=== PATIENT | male | born 1975 | race Caucasian/White ===

== ENCOUNTER 2018-12-26 20:16 | Inpatient (IN) | payer MEDICAID ==
[~2018-12-26] VITALS: Ht 175.3 cm; Wt 78.5 kg
[2018-12-26 20:28] VITALS: Ht 175.3 cm; Wt 78.5 kg
--- NOTE | 2018-12-26 20:33 | NUR ---
PER MEDICS, PT CALLED FOR AN AMBULANCE FROM [facility] WITH C/O ABD PAIN. PT STATES TO HAVING "ABDOMINAL PROBLEMS" X2 YRS, WAS SUPPOSED TO GET HIS GALLBLADDER OUT BUT DID NOT. PT STATES THAT HE OFTEN SUFFERS WITH ABD PAIN BUT IN THE LAST FEW DAYS HAS BECOME INCREASINGLY WORSE. PT STATES TO 8/10 PAIN AT THIS TIME. PT STATES TO ABD DISTENTION, NAUSEA WITH NO VOMITING. PER MEDICS, EKG NSR, VSS. PT AOX4, RESP EVEN AND UNLABORED, NO ACUTE DISTRESS NOTED AT THIS TIME.
[2018-12-26 21:20] LABS: BASOPHIL % 0.8 % (0-2)
[2018-12-26 21:24] LABS: CALCIUM 8.4 mg/dL (8.5-10.1); CARBON DIOXIDE 23.2 mmol/L (21-32); CHLORIDE SERUM 101 mmol/L (98-107); CREATININE SERUM 0.7 mg/dL (0.7-1.3); GFR1 > 60 mL/min; GLUCOSE SERUM 88 mg/dL (74-106); POTASSIUM SERUM 3.4 mmol/L (3.5-5.1); SODIUM SERUM 133 mmol/L (136-145)
[2018-12-26 21:26] LABS: PLATELET COUNT 86 x10^3mcL (130-400); RED CELL DISTRIBUTION WIDTH 19.5 % (11.5-14.5)
[2018-12-26 21:29] LABS: ALKALINE PHOSPHATASE 205 U/L (46-116); ALT/SGPT 33 U/L (16-63); AST/SGOT 76 U/L (15-37); BILIRUBIN TOTAL 2.2 mg/dL (0.20-1.00); LIPASE 354 IU/L (73-393); TOTAL PROTEIN, SERUM 7.4 g/dL (6.4-8.2)
[2018-12-26 21:32] LABS: ALBUMIN 2.6 g/dL (3.4-5.0)
--- NOTE | 2018-12-26 21:35 | NUR ---
PT MEDICATED PER EMAR ORDER. PT VERBALIZED " I AM HEARING A WOMANS VOICE, AND OTHER VOICES". PT DENIES ANY SI OR WANTING TO HARM OTHERS. PT STATES THAT THE VOICES ARE NOT TELLING HIM TO HARM HIMSELF OR OTHERS. PT STATES HE TAKES HALDOL DAILY AND HAS " BUGS" ALL OVER HIM. WILL NOTIFY
--- NOTE | 2018-12-26 22:18 | NUR ---
PT ASLEEP IN ED GURNEY, PT IS EASILY AROUSABLE. PT RESPS ARE E/U. NO S/S OF DISTRESS
[2018-12-26 23:17] LABS: AMPHETAMINE QUAL UR NONE DETECTED (See below)
--- NOTE | 2018-12-26 23:33 | NUR ---
PT WHEELED TO CT VIA JIM[facility] BY [employer].
[2018-12-26] MEDS ORDERED: ZOLOFT20 MG/ML (23:43)
[2018-12-26] MEDS ORDERED: SEROQUEL25 MG (23:43)
[2018-12-26] MEDS ORDERED: LACTULOSE10 GM/152 (23:43)
[2018-12-26] MEDS ORDERED: OMEPRAZOLE10 M1 (23:43)
[2018-12-26] MEDS ORDERED: HYDROXYZIN10 MG/5 M2 (23:44)
[2018-12-26] MEDS ORDERED: ATIVAN0.5 M1 (23:44)
[2018-12-26] MEDS ORDERED: NOR10T (23:44)
[2018-12-26] MEDS ORDERED: HALDOL5 MG/ML (23:45)
[2018-12-26] MEDS ORDERED: DILANTIN100 MG (23:46)
--- NOTE | 2018-12-27 00:22 | NUR ---
PT DENIES HAVING ANY UPDATED IMMUNIZATIONS AT THIS TIME. PT IS LAYING IN [facility]. PT IS A/O X3. PT RESPS ARE E/U. PT STATES THAT HE NEEDS A TB TEST FOR THE GROUP HOME HE IS CURRENTLY RESIDING AT. WILL NOTIFY
--- NOTE | 2018-12-27 01:18 | NUR ---
PT IS ABLE TO AMBULATE WITH STEADY GAIT TO RESTROOM.
--- NOTE | 2018-12-27 02:22 | NUR ---
PT ASLEEP BUT EASILY AROUSABLE. RESPS ARE E/U. NO DISTRESS NOTED
[2018-12-27 03:46] LABS: PHOSPHOROUS 3.2 mg/dL (2.5-4.9)
[2018-12-27 03:47] LABS: CHOLESTEROL/HDL RATIO 4.5
[2018-12-27 04:09] LABS: MAGNESIUM 1.4 mg/dL (1.8-2.4)
[2018-12-27 04:27] LABS: FREE T4 1.01 ng/dL (0.76-1.46); FREE THYROXINE INDEX 2.3 ug/dL (1.4-4.5); T4(THYROXINE) 5.8 ug/dL (4.7-13.3)
--- NOTE | 2018-12-27 04:47 | NUR ---
PT MEDICATED PER EMAR ORDERS. PT IS RESTING IN ED GURNEY. PT DENIES ANY PAIN. COMFORT MEASURES IN PLACE. NO ACD NOTED
[2018-12-27 05:36] LABS: BASOPHIL % 0.7 % (0-2)
[2018-12-27 05:38] LABS: PLATELET COUNT 58 x10^3mcL (130-400); RED CELL DISTRIBUTION WIDTH 19.5 % (11.5-14.5)
[2018-12-27 05:43] LABS: ALKALINE PHOSPHATASE 165 U/L (46-116); ALT/SGPT 29 U/L (16-63); AST/SGOT 65 U/L (15-37); BILIRUBIN TOTAL 1.55 mg/dL (0.20-1.00); CALCIUM 7.5 mg/dL (8.5-10.1); CHLORIDE SERUM 109 mmol/L (98-107); CREATININE SERUM 0.7 mg/dL (0.7-1.3); GFR1 > 60 mL/min; GLUCOSE SERUM 95 mg/dL (74-106); POTASSIUM SERUM 3.6 mmol/L (3.5-5.1); SODIUM SERUM 142 mmol/L (136-145)
--- NOTE | 2018-12-27 05:52 | NUR ---
PAGED MD CHAND TO NOTIFY ABOUT CRITICAL RESULTS
[2018-12-27 05:53] LABS: ALBUMIN 2.1 g/dL (3.4-5.0); TOTAL PROTEIN, SERUM 6.1 g/dL (6.4-8.2)
--- NOTE | 2018-12-27 06:23 | NUR ---
PT ASLEEP IN ED GURNEY BUT EASILY AROUSABLE. PT HAS CALL LIGHT WITHIN REACH. PT MEDICATED PER EMAR ORDERS. NO ACUTE DISTRESS NOTED
[2018-12-27 06:38] LABS: PHOSPHOROUS 3.6 mg/dL (2.5-4.9)
--- NOTE | 2018-12-27 07:07 | NUR ---
GAVE PT REPORT TO BEN NORIEGA TO ASSUME PRIMARY CARE OF PT
--- NOTE | 2018-12-27 07:10 | NUR ---
RECEIVED REPORT FROM LEANN FUENTES
--- NOTE | 2018-12-27 07:52 | NUR ---
REPORT GIVEN TO LEANN BERRY
[2018-12-27 08:12] LABS: T3 TOTAL 0.84 ng/mL
--- NOTE | 2018-12-27 09:33 | NUR ---
MAGEN FROM ULTRASOUND. PERFORMED ULTRA SOUND LOOKING FOR ABD FLUID/ASCITES. VERY LITTLE FLUID NOTED. RADIOLOGIST IS HEAD ESTHETICIAN. T.C. TO DR. SHEETS WITH FINDINGS. HE SAID WE WILL WAIT TO CALL RADIOLOGIST.
[2018-12-27 10:40] VITALS: BP 133/76
[2018-12-27 11:07] LABS: microscopic required? NO
--- NOTE | 2018-12-27 11:15 | NUR ---
RECEIVED PT FROM ER WITH DIAGNOSIS OF ABD PAIN. ALERT AND ORIENTED. BREATHING FREELY ON RA. SAYS HE HAS BEEN HAVING GENERALIZED ABD PAIN X 2 WEEKS. BENDING,COUGHING INCREASES PAIN. PAIN MEDS HELPFUL FROM ER. ALLERGY TO ASA. HOMELESS. ASKING FOR TB TEST SO HE CAN STAY IN THE NURSING HOME. INDEPENDENT W ADL'S. NO PHYSICAL LIMITATINS. HX PSYCH,HTN,CIRRHOSIS, SZ. DOES NOT REMEMBER LAST SEIZURE. SCAB TO RIGHT SIDE LOWER LIP. 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 PT SAYS HE THINKS THEY ARE FROM SCRATCHING BUG BITES. ORIENTED PT TO ROOM AND DEVICES. PT WENT RIGHT TO SLEEP. AWKENS TO VERBAL. CALL LIGHT WITHIN REACH.
[2018-12-27 11:52] LABS: urine erythrocyte NEGATIVE (NEGATIVE)
[2018-12-27 13:18] VITALS: BP 114/80
[2018-12-27 16:29] VITALS: BP 127/75
[2018-12-27 19:20] VITALS: BP 140/66
--- NOTE | 2018-12-27 19:20 | NUR ---
RECEIVED PT AWAKE ALERT AND VERBALLY RESPONSIVE.ON SEIZURE PRECAUTION.PADDED RAILS IN PLACED FOR ALCOHOL WITHDRAWAL.LAST ALCOHOL CONSUMED VERBALIZED WAS YESTERDAY 2 BEERS.C/O BACK PAIN 9/10 TO ACHING PAIN,ABDOMINAL PAIN 8/10 TO PRESSURE LIKE PAIN.ABDOMEN FIRM AND DISTENDED.NO N/V NOTED.DENIES CHESTPAIN.BP 140/66 MMHG,HR 125.WILL CONTINUE TO MONITOR.
--- NOTE | 2018-12-27 19:34 | NUR ---
PT HAS BEEN SLEEPING MOST OF THE DAY. BRP. NS INFUSING 50 CC HOUR. MULTIPLE LARGE VOIDS. ON LASIX IV. US DID NOT FIND ANY MEASURABLE AREAS OF ASCITES. ON LACTULOSE FOR AMMONIA 91. NS INFUSING 50 CC HOUR. REG DIET. INDEPENDENT W ADL'S. COOPERATIVE WITH CARE. CALL LIGHT WITHIN REACH.
--- NOTE | 2018-12-27 21:41 | NUR ---
DR. URENA MADE AWARE OF/H 7.0 21.NO NEW ORDERS AT THIS TIME.
--- NOTE | 2018-12-28 04:47 | NUR ---
PT SLEPT WELL ALL NIGHT.NO SEIZURE ACTIVITY NOTED.PADDDED RAILS IN PLACED.MEDICATED WITH NORCO 7.5 MG PO X1 FOR ABDOMINAL AND BACK PAIN WITH GOOD RELIEF.ON LIBRIUM 25 MG PO RTC.NO WITHDRAWAL EPISODES NOTED.ALL NEEDS MET.WILL CONTINUE TO MONITOR.
[2018-12-28 06:15] VITALS: BP 113/65
--- NOTE | 2018-12-28 06:16 | NUR ---
OLD IV TO LAC LEAKING.STARTED TO LFA WITH GOOD BLOOD RETURMLATEST WBC 2.9.PLACED ON NEUTROPENIC ISOLATION AT THIS TIME.WILL ENDORSE TO AM NURSE.
[2018-12-28 06:30] LABS: CALCIUM 8.1 mg/dL (8.5-10.1); CHLORIDE SERUM 106 mmol/L (98-107); CREATININE SERUM 0.7 mg/dL (0.7-1.3); GFR1 > 60 mL/min; GLUCOSE SERUM 92 mg/dL (74-106); MAGNESIUM 1.7 mg/dL (1.8-2.4); PHOSPHOROUS 3.6 mg/dL (2.5-4.9); POTASSIUM SERUM 4.3 mmol/L (3.5-5.1); SODIUM SERUM 139 mmol/L (136-145)
--- NOTE | 2018-12-28 07:45 | NUR ---
SLEEPING OFF AND ON. RESPONDS TO VERBAL. ORIENTED. BREATHING FREELY ON RA. ABD REMAINS DISTENDED AND FIRM. TAKING LACTULOSE FOR AMMONIA 91 12/27/18. HAB BM YESTERDAY PER PT. DENIES NEED FOR PAIN MED. REVERSE ISOLATION FOR WBC 2.6. GENERALIZED WEAKNESS. INDEPENDENT W ADL'S. TELE # 24 NSR-ST. LOTTIE INFUSING 50 CC HOUR. CALL LIGHT WITHIN REACH.
[2018-12-28 08:29] LABS: PLATELET COUNT 61 x10^3mcL (130-400); RED CELL DISTRIBUTION WIDTH 18.1 % (11.5-14.5)
--- NOTE | 2018-12-28 08:46 | NUR ---
REPORTED TO REHAB THERAPIST MAG 1.7.
[2018-12-28 09:00] VITALS: BP 116/77
--- NOTE | 2018-12-28 10:00 | NUR ---
MAG PULIDO STARTED. CONSENT SIGNED FOR BLOOD TRANSFUSION.
[2018-12-28 10:52] LABS: BAND NEUTROPHIL 5 % (0-10); BASOPHIL 0 % (0-2); MONOCYTE 12 % (0-7); SEGMENTED NEUTROPHILS 65 % (37-75)
[2018-12-28 10:53] LABS: PLATELET MORPHOLOGY PLATELETS DECREASED; rbc morphology (normal/abnorm) ABNORMAL (NORMAL)
[2018-12-28 12:18] VITALS: BP 111/66
--- NOTE | 2018-12-28 13:26 | NUR ---
Intervention/RDN Recommendation(s): 1. Consider D/C regular diet. 2. Consider starting 2gm Na diet d/t hx liver cirrhosis
--- NOTE | 2018-12-28 13:26 | NUR ---
Initial Nutrition Assessment- Dx: abd pain x 1 day PMHx: liver cirrhosis, schizophrenia, HTN, esophageal varices PSHx: None Labs: (12/28/18) Na 139, K 4.3, Glu 92, BUN 8, Cr 0.7, Ca 8.1 L, Bii 1.55 H, A1c 5.1 Meds: aldactone, Ativan, Colace, Dilantin, folic acid, Haldol, klor-con, lactulose, Lasix, magnesium sulfate, morphine sulfate, norco, Seroquel, sodium chl 0.9%, theragran-M, Tylenol, vit B1, zofran Diet: Reg PO Intakes: Pt is a new admit Ht: 69 inches (5'9") Wt: 78.528 kg (172 pounds) BMI: 25.6 kg/m2, normal for age IBW: 160 pounds (73 kg) %IBW: 107% UBW: Unknown Age: 43 Food Allergies: No Known Food Allergies Skin: Jose 19; lt arm with 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 Per H&P, Pt presents to ED with one day history of abdominal pain. Pt was given Haldol in ER, sedated at time of interview. Pt denies SOB, N/V. Pt states having had paracentesis three months ago. Per physician progress note (12/27), no acute events over night. Pt mostly sleeping, unable to awaken for exam with MD. RDN visited with Pt, Pt on regular diet without issues. RDN visited with Pt while Pt was consuming lunch tray. Pt admits to a better appetite today. RDN educated Pt on low sodium diet due to liver cirrhosis and fluid accumulation just before Pt reports begin homeless with difficulty obtaining foods/getting food from shelters. Pt, however, verbalizes understanding and appreciates diet education. Nursing Trigger - appears underweight/malnourished, poor PO intakes > 3 days Problem with: N: no V: no D: no C: no Problems with: Chewing: no Swallowing:no Current appetite: Good; better now that he has been diuresed Recent wt changes: Wt fluct anticipated d/t Pt with liver cirrhosis Vitamin/Supplement: none Special Diet at Home: none; Pt is homeless; Pt obtains food from shelters Physical activity: none Education: N/A Estimated Nutritional Needs Based on ideal body weight of 73 kg. Energy: 4798-4748 kcal/d (30-35 kcal/kg for liver cirrhosis) Protein: 88-117 gm/d (1.2-1.6 gm/kg for liver cirrhosis) Fluid: 1813-2432 mL/d (1 mL/kcal) or per MD. Nutrition Diagnosis 1. Increased nutrient intake related to hepatic disease as evidenced by dx of liver cirrhosis. Intervention/RDN Recommendation(s): 1. Consider D/C regular diet. 2. Consider starting 2gm Na diet d/t hx liver cirrhosis Monitor/Evaluate Goal: Intake via PO intakes to meet at least 75% of estimated needs with acceptable tolerance within 2-3 days. Monitor: PO intakes and/or nutrition support tolerance, Labs, GI function, Skin integrity, Weights. F/U in 2-3 days as high risk (12/30-)
--- NOTE | 2018-12-28 13:41 | NUR ---
STARTED 1 UNIT PRBC'S.
--- NOTE | 2018-12-28 16:28 | NUR ---
1 UNIT PRBC'S INFUSED. TEMP 100.8. WILL ADMIN TYLENOL 650 MG PO
[2018-12-28 16:29] VITALS: BP 124/71
--- NOTE | 2018-12-28 19:07 | NUR ---
ALERT AND ORIENTED. BREATHING FREELY ON RA. RECEIVED MG RIDER AND 1 U PRBCS THIS SHIFT. PPD TEST GIVEN. TO BE OSKAR'D 12/30/18 1530. CONTINUES TO HAVE ABD AND BACK PAIN. NORCO PROVIDES LITTLE RELIEF, INDEPENDENT W ADL'S. CALLLIGHT WITHIN REACH. VSS. NS INFUSING 50 CC HOUR.
[2018-12-28 19:10] VITALS: BP 109/52
--- NOTE | 2018-12-28 19:10 | NUR ---
RECEIVED PT AWAKE ALERT AND VERBALLY RESPONSIVE.BREATHING EASY AND NON-LABORED.DENIES CHESTPAIN AT THIS TIME.BP 109/52 MMHG,HR 103.LATEST TEMP @ 100.0F.COOLING MEASURES IN PLACED.C/O BACK AND ABDOMINLA PAIN TO PRESSURE LIKE 4/10.ON LACTULOSE TX.ABDOMEN SOFT/DISTENDED.ON NEUTROPENIC ISOLATION.WILL OBSERVE PROTOCOL.WILL CONTINUE TO MONITOR.
--- NOTE | 2018-12-28 23:27 | NUR ---
TEMP CHECKED @ 99.0F.DENIES ABDOMINAL PAIN AT THIS TIME.WILL CONTINUE TO MONITOR.
--- NOTE | 2018-12-29 04:41 | NUR ---
PT SLEPT WITH INTERVALS.DENIES ABDOMINAL PAIN ALL NIGHT.NO WITHDRAWAL SYMPTOMS NOTED.NO SEIZURE ACTIVITY NOTED.PADDED RAILS IN PLACE.REMAINS ON NEUTROPENIC PRECAUTIONS.GOODHANDWASHING TECHNIQUE OBSERVED.ALL NEEDS MET.WILL CONTINUE TO MONITOR.
[2018-12-29 05:37] VITALS: BP 123/76
--- NOTE | 2018-12-29 06:20 | NUR ---
LATEST TEMP @ 99.1F.WILL ENDORSE TO AM NURSE.
[2018-12-29 06:42] LABS: BASOPHIL % 0.6 % (0-2)
[2018-12-29 06:54] LABS: CALCIUM 7.5 mg/dL (8.5-10.1); CARBON DIOXIDE 20.3 mmol/L (21-32); CHLORIDE SERUM 100 mmol/L (98-107); CREATININE SERUM 0.7 mg/dL (0.7-1.3); GFR1 > 60 mL/min; GLUCOSE SERUM 110 mg/dL (74-106); POTASSIUM SERUM 3.9 mmol/L (3.5-5.1); SODIUM SERUM 129 mmol/L (136-145)
[2018-12-29 07:04] LABS: PLATELET COUNT 60 x10^3mcL (130-400); RED CELL DISTRIBUTION WIDTH 18.7 % (11.5-14.5)
--- NOTE | 2018-12-29 07:30 | NUR ---
RECEIVED PATIENT AWAKE AND ALERT, SITTING AT EDGE OF BED, A/O X4. PATIENT ON RA, NO RESP DISTRESS NOTED, LUNGS CLEAR TO AUSCULTATION. VSS. PATIENT ON TELE HR 99 SR. PATIENT ABDOMEN DISTENDED AND HARD, PT REPORTS LOOSE STOOL. VOIDS FREELY. PATIENT REPORTS PRESSURE AND PAIN IN ABDOMEN 05/11. REPORTS POSITIONING RELIEVES SOMEWHAT. PATIENT AMBULATORY. SCATTERED SCABS NOTED THROUGHOUT THE BODY WITH NO DRAINAGE. PATIENT IS SOMEWHAT ANXIOUS AND STATES HE "NEEDS TO GO SECURE HIS THINGS AT THE [facility]". IV ACCESS LFA C/D/I INFUSING NS AT 50ML/HR. SAFETY MEASURES IN PLACE, BED LOW AND LOCKED. CALL [facility] WITHIN REACH.
[2018-12-29 09:34] VITALS: BP 116/77
--- NOTE | 2018-12-29 09:50 | NUR ---
PATIENT STATES HE NEEDS TO LEAVE TODAY TO GO GET HIS BELONGINGS FROM THE [facility] HE IS CURRENTLY AT, IF HE DOES NOT GET THEM TODAY THEY WILL THROW HIS BELONGINGS IN THE TRASH. SANFORD OLGUIN INFORMED PATIENT RISKS OF LEAVING AGAINST MEDICAL ADVICE, PATIENT VERBALIZED UNDERSTANDING, AMA FORM SIGNED. PATIENT INSTRUCTED TO RETURN TO ER TOMORROW AT 1535 TO HAVE PPD READ, COPIES GIVEN TO PATIENT. IV TO LFA REMOVED, CATH INTACT. ID BANDS REMOVED, TELE MONITOR REMOVED AND RETURNED TO BOARD OF DIRECTORS. SUPPLIES GIVEN TO PATIENT SO HE CAN SHOWER. SAFETY PRECAUTIONS MAINTAINED.
--- NOTE | 2018-12-29 10:30 | NUR ---
PATIENT DRESSED AND READY TO LEAVE. PATIENT ASSISTED DOWN TO LOBBY ACCOMPANIED BY NURSE AID, ALL BELONGINGS SENT HOME WITH PATIENT. BUS VOUCHERS X2 GIVEN TO PATIENT.
== END 2018-12-29 10:34 | disposition left against medical advice (07) | DRG 280 ==
LOC: ED 20:16 → DU 12-27 02:12
PROVIDERS: Emergency Medicine; ADMIT Internal Medicine
PROC: 30233N1 Transfusion of Nonautologous Red Blood Cells into Peripheral Vein, Percutaneous Approach (ICD-10-PCS; principal; 2018-12-27)
DX: K70.31 Alcoholic cirrhosis of liver with ascites (principal); E43 Unspecified severe protein-calorie malnutrition; G92 Toxic encephalopathy; D61.818 Other pancytopenia; K76.6 Portal hypertension; D69.59 Other secondary thrombocytopenia; I85.10 Secondary esophageal varices without bleeding; E83.42 Hypomagnesemia; E87.1 Hypo-osmolality and hyponatremia; T50.905A Adverse effect of unspecified drugs, medicaments and biological substances, initial encounter; F10.129 Alcohol abuse with intoxication, unspecified; E87.6 Hypokalemia; F20.9 Schizophrenia, unspecified; D64.9 Anemia, unspecified; D63.8 Anemia in other chronic diseases classified elsewhere; R16.1 Splenomegaly, not elsewhere classified; K80.20 Calculus of gallbladder without cholecystitis without obstruction; Z68.22 Body mass index [BMI] 22.0-22.9, adult; Y90.6 Blood alcohol level of 120-199 mg/100 ml; Z59.0 Homelessness; Z53.29 Procedure and treatment not carried out because of patient's decision for other reasons
CPT/HCPCS: 83880; 84439; 86580; 87116; 87206; G0480; J1630; J1940; J2001; J2270; J2405; J3475; J7030; J7040; P9016; Q0092; Q0163